=== PATIENT | male | born 1980 | race Caucasian/White ===

== ENCOUNTER 2022-02-17 15:26 | Emergency (ER) | payer MEDICAID ==
[~2022-02-17] VITALS: Ht 170.2 cm; Wt 75.0 kg
[2022-02-17] MEDS ORDERED: LIDOCAINE HCL/PF 1% 10 MG/ML 5ML VIAL INFIL ONE (16:00)
[2022-02-17] MEDS ORDERED: TETANUS, DIPHTHERIA, PERTUSSIS VAC/PF 0.5ML (>10YR OLD) IM ONE (16:00)
[2022-02-17] MEDS ORDERED: BACITRACIN ZINC OINT UDPKT TOP ONE (16:00)
[2022-02-17] MEDS ORDERED: HYDROCODONE/ACETAMINOPHEN 5/325MG TABLET PO ONE (16:00)
[2022-02-17] MEDS ORDERED: T3 PO (17:08)
[2022-02-17] MEDS ORDERED: IBUP-2030 PO (17:08)
[2022-02-17] MEDS ORDERED: BO1 TP (17:08)
[2022-02-17 18:41] VITALS: BP 128/85
== END 2022-02-17 18:42 | disposition home or self-care (01) ==
LOC: ER 15:26
DX: S00.83XA Contusion of other part of head, initial encounter (principal); S52.291A Other fracture of shaft of right ulna, initial encounter for closed fracture; W01.0XXA Fall on same level from slipping, tripping and stumbling without subsequent striking against object, initial encounter; Y93.89 Activity, other specified; Y92.89 Other specified places as the place of occurrence of the external cause; Y99.8 Other external cause status
CPT/HCPCS: 12013; 70450; 70486; 72125; 73090; 73110; 90471; 90715; 99284; J3490